=== PATIENT | male | born 1975 ===

== ENCOUNTER → 2023-07-22 | Outpatient (REF) | payer OTHER ==
[2023-07-22 18:46] LABS: CREATININE, URINE 141.1 MG/DL
[2023-07-22 18:48] LABS: MAU/CREAT RATIO 150.9 MCG/MG (0.0-30.0)
== END ==
LOC: M LAB REF 17:25
PROVIDERS: ATTEND Nurse Practitioner Family
DX: E11.65 Type 2 diabetes mellitus with hyperglycemia (principal)